=== PATIENT | female | born 1965 | race Hispanic/Latino ===

== ENCOUNTER 2022-06-16 19:04 | Inpatient (IN) | payer BC, OTHER, SELFPAY ==
[2022-06-16 20:18] LABS: ALT (SGPT) 97 U/L (8-55); AST (SGOT) 66 U/L (5-34); Albumin 3.4 g/dL (3.5-5.0); Alkaline Phosphatase 187 U/L (40-110); Anion Gap 16 mmol/L (10-20); BUN (Urea Nitrogen) 16 mg/dL (9.8-20.1); Bilirubin, Total 5.8 mg/dL (0.2-1.2); Calc. Creatinine Clearance 0 mL/min (70-130); Carbon Dioxide 18 mmol/L (22-29); Chloride 101 mmol/L (98-107); Estimated GFR 103; Globulin 4.7 g/dL (2.4-3.5); Glucose 245 mg/dL (70-105); Lipase 46 U/L (8-78); Protein, Total 8.1 g/dL (6.0-8.3); Sodium 131 mmol/L (136-145)
[2022-06-16 20:23] LABS: #Lymphocytes 0.6 thou/uL (1.20-3.40); #Monocytes 0.3 thou/uL (0.11-0.59); #Neutrophils 2.2 thou/uL (1.40-6.50); %Basophils 0.1 % (0.0-1.0); %Eosinophils 0.4 % (0.0-10.0); %Lymphocytes 18.9 % (21.0-51.0); %Monocytes 10.4 % (0.0-10.0); %Neutrophils 70.2 % (42.0-75.0); Hemoglobin 13.4 g/dL (12.0-16.0); Large Platelets SLIGHT; MDiff Complete? YES; Mean Corpuscular Volume 97.2 fl (78.0-98.0); Platelet Count 48 10x3/uL (130-400); Platelet Morphology Comment Appears Decreased; RBC Distribution Width 12.1 % (11.5-14.5); RBC Morphology Normal; Red Blood Cell (RBC) Count 3.93 mill/uL (4.20-5.40); White Blood Cell (WBC) Count 3.2 10x3/uL (4.8-10.8)
[2022-06-16 20:48] LABS: Bacteria/HPF None Seen HPF (None Seen); Bilirubin 1+ (Negative); Blood, Urine Negative (Negative); Clarity Clear (Clear); Glucose, Urine (Dipstick) 500 mg/dL (Negative); Ketone, Urine Negative (Negative); Leukocyte 500 Leu/uL (Negative); Nitrite Negative (Negative); Protein, Urine (Dipstick) 20 mg/dL (Neg-Trace); RBC/HPF 0-3 HPF (0-3); Specific Gravity, Urine 1.023 (1.002-1.036); Squamous Epithelial 0-3 HPF (0-3); Urobilinogen Normal mg/dL (Less than 2); pH, Urine 6.5 (5.0-9.0)
[2022-06-16] MEDS ORDERED: Piperacillin/Tazobactam 3.375 GM VIAL ONE (22:09)
[2022-06-16] MEDS ORDERED: Morphine 4 MG/ML VIAL ONE (22:09)
[2022-06-16] MEDS ORDERED: Ondansetron PF 4 MG/2 ML Vial ONE (22:24)
[2022-06-16 23:28] LABS: Actual Bicarbonate (HCO3v) 22 mEq/L (22-28); Base Excess -3.2 mEq/L (-2.0 to +3.0); Chloride (VBG) 104 mmol/L (98-106); Hemoglobin (Hb) 13.1 g/dL (11.7-16.0); Potassium (VBG) 3.89 mmol/L (3.70-5.30); Sodium 134.6 mmol/L (133-146); pH (venous) 7.36 (7.32-7.43)
[2022-06-16] MEDS ORDERED: Ondansetron PF 4 MG/2 ML Vial IVP PRN (23:30)
[2022-06-16] MEDS ORDERED: Morphine 4 MG/ML VIAL SLOW IVP PRN (23:32)
[2022-06-16] MEDS ORDERED: Dextrose 50% Abboject 50 ML SYRINGE SLOW IVP PRN (23:52)
[2022-06-16] MEDS ORDERED: Dextrose 5% in Water 1,000 ML IV PRN (23:52)
[2022-06-17 00:14] LABS: Acetaminophen Less than 10.0 mcg/mL (10.0-30.0)
[2022-06-17] MEDS ORDERED: Albumin 25% 25 GM/100 ML BOT IVPB SCH (00:30)
[2022-06-17] MEDS: Sodium Chloride 0.9% 1,000 ML IV SCH (02:00)
[2022-06-17 02:33] VITALS: BMI 25.8
[2022-06-17 02:36] LABS: Hemoglobin 12.8 g/dL (12.0-16.0); Mean Corpuscular HGB CONC 34.4 g/dL (32.0-36.0); Mean Corpuscular Hemoglobin 33.3 pg (27.0-31.0); Mean Corpuscular Volume 96.8 fl (78.0-98.0); Mean Platelet Volume 9.1 fL (7.4-10.4); Platelet Count 49 10x3/uL (130-400); RBC Distribution Width 12.2 % (11.5-14.5); Red Blood Cell (RBC) Count 3.83 mill/uL (4.20-5.40); White Blood Cell (WBC) Count 3.3 10x3/uL (4.8-10.8)
[2022-06-17] MEDS: Piperacillin/Tazobactam 3.375 GM in Sodium Chloride 0.9% 100 ML IVPB SCH ×3 (02:40→17:58)
[2022-06-17 02:44] LABS: Lactic Acid 2.2 mmol/L (0.5-2.2)
[2022-06-17 02:55] LABS: Hemoglobin A1c 9.3 % (4.0-6.0)
[2022-06-17 02:59] LABS: ALT (SGPT) 83 U/L (8-55); AST (SGOT) 65 U/L (5-34); Albumin 3.5 g/dL (3.5-5.0); Alkaline Phosphatase 181 U/L (40-110); Anion Gap 15 mmol/L (10-20); BUN (Urea Nitrogen) 9 mg/dL (9.8-20.1); Bilirubin, Total 4.4 mg/dL (0.2-1.2); Calc. Creatinine Clearance 114 mL/min (70-130); Calcium 8.9 mg/dL (7.8-10.44); Carbon Dioxide 20 mmol/L (22-29); Chloride 103 mmol/L (98-107); Estimated GFR 109; Globulin 4.2 g/dL (2.4-3.5); Glucose 156 mg/dL (70-105); Potassium 4.2 mmol/L (3.5-5.1); Protein, Total 7.7 g/dL (6.0-8.3); Sodium 134 mmol/L (136-145)
[2022-06-17 03:09] LABS: Band 1 % (5-11); Lymphocytes 36 % (21-51); MDiff Complete? YES; Monocytes 5 % (0-10); Neutrophil 58 % (42-75); Platelet Morphology Comment Appears Adequate; RBC Morphology Normal
[2022-06-17 04:14] LABS: SARS-CoV-2 NAA Rapid Test Not Detected (NotDetected)
[2022-06-17 05:51] LABS: INR-International Normal Ratio 1.1
[2022-06-17] MEDS: HumaLOG 300 UNITS/3 ML VIAL SC PRN (06:21)
[2022-06-17] MEDS ORDERED: Electrolyte Replacement Protocol 1 EACH FS SCH (09:00)
[2022-06-17] MEDS ORDERED: Morphine 2 MG/ML VIAL ONE (10:56)
[2022-06-17] MEDS ORDERED: traMADol HCl 50 MG TAB PO PRN (15:11)
[2022-06-17] MEDS: Docusate 100 MG CAP PO SCH (21:34)
[2022-06-18] MEDS: Piperacillin/Tazobactam 3.375 GM in Sodium Chloride 0.9% 100 ML IVPB SCH ×3 (02:26→18:45)
[2022-06-18] MEDS: Sodium Chloride 0.9% 1,000 ML IV SCH ×3 (02:28→02:34)
[2022-06-18 06:38] LABS: Band 3 % (5-11); Hemoglobin 12.1 g/dL (12.0-16.0); Lymphocytes 18 % (21-51); MDiff Complete? YES; Mean Corpuscular HGB CONC 34.8 g/dL (32.0-36.0); Mean Corpuscular Hemoglobin 33.6 pg (27.0-31.0); Mean Corpuscular Volume 96.5 fl (78.0-98.0); Monocytes 10 % (0-10); Neutrophil 67 % (42-75); Platelet Count 51 10x3/uL (130-400); Platelet Morphology Comment Appears Decreased; RBC Distribution Width 12.1 % (11.5-14.5); RBC Morphology Normal; Reactive Lymphocytes 2 % (0-10); Red Blood Cell (RBC) Count 3.61 mill/uL (4.20-5.40); White Blood Cell (WBC) Count 2.7 10x3/uL (4.8-10.8)
[2022-06-18 06:41] LABS: ALT (SGPT) 68 U/L (8-55); AST (SGOT) 75 U/L (5-34); Alkaline Phosphatase 179 U/L (40-110); Anion Gap 11 mmol/L (10-20); BUN (Urea Nitrogen) 6 mg/dL (9.8-20.1); Calc. Creatinine Clearance 109 mL/min (70-130); Calcium 8.5 mg/dL (7.8-10.44); Carbon Dioxide 22 mmol/L (22-29); Chloride 105 mmol/L (98-107); Estimated GFR 108; Globulin 3.9 g/dL (2.4-3.5); Glucose 146 mg/dL (70-105); Lipase 24 U/L (8-78); Magnesium 1.6 mg/dL (1.6-2.6); Potassium 3.1 mmol/L (3.5-5.1); Protein, Total 6.9 g/dL (6.0-8.3); Sodium 135 mmol/L (136-145)
[2022-06-18 06:57] LABS: HBCM Index 0.09 S/CO (0-0.79); HBSAg Index 0.31 S/CO (0-0.99); Hep A IgM AB Non-Reactive (NonReactive); Hep A IgM S/CO 0.12 S/CO (0-0.79); Hep B Surf Ag Non-Reactive S/CO (NonReactive); Hep C IgG Ab Non-Reactive (NonReactive); Hep C Index 0.15 S/CO (0-0.79); Hepatitis B Core IgM Abs Non-Reactive (NonReactive)
[2022-06-18] MEDS ORDERED: Magnesium 2 GM/50 ML(in water) 2 GM in Premix Bag 1 BAG IVPB SCH (08:00)
[2022-06-18] MEDS ORDERED: Potassium Chloride 20 MEQ TAB PO SCH (08:00)
[2022-06-18] MEDS: Docusate 100 MG CAP PO SCH ×2 (10:17→21:42)
[2022-06-18] MEDS: HumaLOG 300 UNITS/3 ML VIAL SC PRN ×2 (12:24→16:46)
[2022-06-19] MEDS: HumaLOG 300 UNITS/3 ML VIAL SC PRN ×5 (00:12→23:18)
[2022-06-19] MEDS: Piperacillin/Tazobactam 3.375 GM in Sodium Chloride 0.9% 100 ML IVPB SCH ×2 (02:17→09:56)
[2022-06-19 05:13] LABS: #Lymphocytes 1.1 thou/uL (1.20-3.40); #Monocytes 0.3 thou/uL (0.11-0.59); #Neutrophils 1.2 thou/uL (1.40-6.50); %Basophils 0.1 % (0.0-1.0); %Eosinophils 1.3 % (0.0-10.0); %Lymphocytes 42.6 % (21.0-51.0); %Monocytes 11.3 % (0.0-10.0); %Neutrophils 44.6 % (42.0-75.0); Hemoglobin 12.4 g/dL (12.0-16.0); Mean Corpuscular HGB CONC 34.5 g/dL (32.0-36.0); Mean Corpuscular Hemoglobin 33.3 pg (27.0-31.0); Mean Corpuscular Volume 96.6 fl (78.0-98.0); Mean Platelet Volume 7.9 fL (7.4-10.4); Platelet Count 65 10x3/uL (130-400); RBC Distribution Width 12.3 % (11.5-14.5); Red Blood Cell (RBC) Count 3.74 mill/uL (4.20-5.40); White Blood Cell (WBC) Count 2.7 10x3/uL (4.8-10.8)
[2022-06-19 05:35] LABS: ALT (SGPT) 76 U/L (8-55); AST (SGOT) 99 U/L (5-34); Albumin 3.1 g/dL (3.5-5.0); Alkaline Phosphatase 212 U/L (40-110); Anion Gap 9 mmol/L (10-20); BUN (Urea Nitrogen) 6 mg/dL (9.8-20.1); Bilirubin, Total 2.5 mg/dL (0.2-1.2); Calc. Creatinine Clearance 102 mL/min (70-130); Calcium 8.8 mg/dL (7.8-10.44); Carbon Dioxide 25 mmol/L (22-29); Chloride 106 mmol/L (98-107); Estimated GFR 106; Globulin 4.1 g/dL (2.4-3.5); Glucose 175 mg/dL (70-105); Potassium 3.6 mmol/L (3.5-5.1); Protein, Total 7.2 g/dL (6.0-8.3); Sodium 136 mmol/L (136-145)
[2022-06-19] MEDS: Docusate 100 MG CAP PO SCH ×2 (09:16→20:25)
[2022-06-19] MEDS ORDERED: Piperacillin/Tazobactam 3.375 GM in Sodium Chloride 0.9% 100 ML IVPB SCH (18:00)
[2022-06-19] MEDS ORDERED: Simethicone Chewable 80 MG TAB PO PRN (20:56)
[2022-06-19 23:19] VITALS: TEMP 98.2
[2022-06-20] MEDS: HumaLOG 300 UNITS/3 ML VIAL SC PRN (05:31)
[2022-06-20 06:28] LABS: #Lymphocytes 0.8 thou/uL (1.20-3.40); #Monocytes 0.3 thou/uL (0.11-0.59); #Neutrophils 2.1 thou/uL (1.40-6.50); %Basophils 0.7 % (0.0-1.0); %Eosinophils 1.3 % (0.0-10.0); %Lymphocytes 23.9 % (21.0-51.0); %Monocytes 7.8 % (0.0-10.0); %Neutrophils 66.4 % (42.0-75.0); Hemoglobin 12.1 g/dL (12.0-16.0); Mean Corpuscular HGB CONC 34.4 g/dL (32.0-36.0); Mean Corpuscular Hemoglobin 33.1 pg (27.0-31.0); Mean Corpuscular Volume 96.5 fl (78.0-98.0); Platelet Count 82 10x3/uL (130-400); RBC Distribution Width 12.2 % (11.5-14.5); Red Blood Cell (RBC) Count 3.65 mill/uL (4.20-5.40); White Blood Cell (WBC) Count 3.2 10x3/uL (4.8-10.8)
[2022-06-20 06:42] LABS: Anion Gap 13 mmol/L (10-20); BUN (Urea Nitrogen) 6 mg/dL (9.8-20.1); Calc. Creatinine Clearance 106 mL/min (70-130); Calcium 8.8 mg/dL (7.8-10.44); Carbon Dioxide 20 mmol/L (22-29); Chloride 104 mmol/L (98-107); Estimated GFR 107; Glucose 234 mg/dL (70-105); Potassium 3.6 mmol/L (3.5-5.1); Sodium 133 mmol/L (136-145)
[2022-06-20 07:54] VITALS: BP 113/67
[2022-06-20] MEDS: Docusate 100 MG CAP PO SCH (07:56)
[2022-06-20 08:05] LABS: ALT (SGPT) 158 U/L (8-55); AST (SGOT) 299 U/L (5-34); Albumin 3.1 g/dL (3.5-5.0); Alkaline Phosphatase 301 U/L (40-110); Bilirubin, Direct 3.6 mg/dL (0.1-0.3); Bilirubin, Total 4.1 mg/dL (0.2-1.2); Protein, Total 7.4 g/dL (6.0-8.3)
[2022-06-20] MEDS ORDERED: FLU VACC QS2022-23(6MO UP)/PF 60 MCG/0.5 ML SYRINGE IM ONE (09:00)
[2022-06-22 09:17] LABS: Norovirus GI Negative (Negative); Norovirus GII Negative (Negative)
== END 2022-06-20 15:38 | disposition home or self-care (01) | DRG 446 ==
LOC: ERS 19:04 → MSONC 23:54
PROVIDERS: ADMIT Internal Medicine; ATTEND Family Medicine
PROC: 4A033R1 Measurement of Arterial Saturation, Peripheral, Percutaneous Approach (ICD-10-PCS; principal; 2022-06-16)
DX: K81.0 Acute cholecystitis (principal); Z20.822 Contact with and (suspected) exposure to COVID-19; D69.6 Thrombocytopenia, unspecified; K74.60 Unspecified cirrhosis of liver; E11.65 Type 2 diabetes mellitus with hyperglycemia; Z79.899 Other long term (current) drug therapy; Z79.84 Long term (current) use of oral hypoglycemic drugs; Z80.9 Family history of malignant neoplasm, unspecified; K75.81 Nonalcoholic steatohepatitis (NASH); E87.6 Hypokalemia; K52.9 Noninfective gastroenteritis and colitis, unspecified
CPT/HCPCS: 36415; 36416; 74181; 76705; 78227; 80048; 80053; 80074; 80076; 80143; 81003; 81015; 82010; 82105; 82550; 82805; 83036; 83605; 83630; 83690; 83735; 85025; 85610; 85730; 87015; 87040; 87086; 87206; 87798; 93005; 96365; 96366; 96367; 96375; 80307; A9537; J1815; J1956; J2270; J2272; J2405; J2543; J3475; J3490; J7050; P9047; U0002

== ENCOUNTER 2022-07-14 16:44 | Emergency (ER) | payer OTHER ==
[~2022-07-14 16:44] MED LIST: Iopamidol-370 76% 500 ML MDV (1 ML CHARGE) ONE
[2022-07-14 17:47] LABS: Hemoglobin 13.9 g/dL (12.0-16.0); Mean Corpuscular HGB CONC 35.7 g/dL (32.0-36.0); Mean Corpuscular Hemoglobin 34.5 pg (27.0-31.0); Mean Corpuscular Volume 96.4 fl (78.0-98.0); Mean Platelet Volume 9.1 fL (7.4-10.4); Platelet Count 76 10x3/uL (130-400); Red Blood Cell (RBC) Count 4.04 mill/uL (4.20-5.40); White Blood Cell (WBC) Count 7.1 10x3/uL (4.8-10.8)
[2022-07-14 18:05] LABS: ALT (SGPT) 53 U/L (8-55); AST (SGOT) 55 U/L (5-34); Albumin 4.1 g/dL (3.5-5.0); Alkaline Phosphatase 211 U/L (40-110); Anion Gap 15 mmol/L (10-20); BUN (Urea Nitrogen) 10 mg/dL (9.8-20.1); Bilirubin, Total 1.6 mg/dL (0.2-1.2); Calc. Creatinine Clearance 0 mL/min (70-130); Calcium 9.6 mg/dL (7.8-10.44); Carbon Dioxide 22 mmol/L (22-29); Chloride 102 mmol/L (98-107); Estimated GFR 102; Globulin 5.2 g/dL (2.4-3.5); Glucose 287 mg/dL (70-105); Lipase 31 U/L (8-78); Potassium 4.4 mmol/L (3.5-5.1); Protein, Total 9.3 g/dL (6.0-8.3); Sodium 135 mmol/L (136-145)
[2022-07-14 18:09] LABS: #Eosinphils 0.1 thou/uL (0.0-0.7); #Lymphocytes 1.4 thou/uL (1.20-3.40); #Monocytes 0.4 thou/uL (0.11-0.59); #Neutrophils 5.2 thou/uL (1.40-6.50); %Basophils 0.1 % (0.0-1.0); %Lymphocytes 19.8 % (21.0-51.0)
[2022-07-14] MEDS ORDERED: Ondansetron PF 4 MG/2 ML Vial ONE (20:37)
[2022-07-14] MEDS ORDERED: Morphine 4 MG/ML VIAL ONE (20:37)
[2022-07-14 21:07] LABS: Bilirubin Negative (Negative); Blood, Urine Negative (Negative); Clarity Clear (Clear); Glucose, Urine (Dipstick) Greater than 1000 mg/dL (Negative); Ketone, Urine Trace mg/dL (Negative); Leukocyte Negative Leu/uL (Negative); Nitrite Negative (Negative); Protein, Urine (Dipstick) 20 mg/dL (Neg-Trace); Specific Gravity, Urine 1.039 (1.002-1.036)
[2022-07-14] MEDS ORDERED: fentaNYL 50 mcg/mL 1 mL Vial ONE (21:15)
[2022-07-14] MEDS ORDERED: Ketorolac Tromethamine 30 MG/ML VIAL ONE (21:26)
== END 2022-07-14 23:43 | disposition home or self-care (01) ==
LOC: ERS 16:44
DX: R10.13 Epigastric pain (principal); R11.2 Nausea with vomiting, unspecified; E11.9 Type 2 diabetes mellitus without complications
CPT/HCPCS: 36415; 71045; 74177; 80053; 81003; 83690; 84484; 85025; 93005; 96361; 96374; J1885; J2270; J2405; J3010; Q9967

== ENCOUNTER 2024-11-01 15:05 | Outpatient (CLI) | payer OTHER | END 2024-11-01 15:06 | disposition home or self-care (01) | LOC: BICMAMMO 15:05 | PROVIDERS: ATTEND Family Medicine | DX: Z12.31 Encounter for screening mammogram for malignant neoplasm of breast (principal) | CPT/HCPCS: 77063; 77067 ==